=== PATIENT | male | born 1985 | race Two or more races ===

== ENCOUNTER 2020-11-09 04:34 | Emergency (ER) | payer BC ==
[~2020-11-09] VITALS: Ht 170.2 cm; Wt 87.8 kg
== END 2020-11-09 14:22 | disposition home or self-care (01) ==
LOC: ER 04:34
DX: N39.0 Urinary tract infection, site not specified (principal); K57.32 Diverticulitis of large intestine without perforation or abscess without bleeding; N20.0 Calculus of kidney; R10.31 Right lower quadrant pain